=== PATIENT | female | born 1975 | race African-American/Black ===

== ENCOUNTER 2020-11-20 10:41 | Emergency (ER) | payer OTHER ==
[~2020-11-20] VITALS: Ht 170.2 cm; Wt 106.6 kg
[2020-11-20] MEDS ORDERED: MOBIC15 MG PO (11:31)
[2020-11-20] MEDS ORDERED: MEDROLDOSEPACK PO (11:31)
[2020-11-20 12:17] VITALS: BP 103/54
== END 2020-11-20 12:17 | disposition home or self-care (01) ==
LOC: ER 10:41
DX: G89.29 Other chronic pain (principal); M25.561 Pain in right knee; M25.562 Pain in left knee; M25.552 Pain in left hip; J45.909 Unspecified asthma, uncomplicated